=== PATIENT | female | born 1995 | race Caucasian/White ===

== ENCOUNTER 2020-05-26 21:31 | Emergency (ER) | payer SELFPAY ==
[~2020-05-26] VITALS: Ht 154.9 cm; Wt 62.8 kg
[2020-05-26 21:35] VITALS: BP 130/87
[2020-05-26] MEDS ORDERED: MORPHINE SULFATE 4 MG/ML, 1ML IVPush PRN (22:00)
[2020-05-26] MEDS ORDERED: SODIUM CHLORIDE 0.9% 1,000ML IVBOLUS ONE (22:00)
[2020-05-26] MEDS ORDERED: ONDANSETRON 2MG/ML, 2ML IVPush ONE (22:00)
[2020-05-26] MEDS ORDERED: ONDANSETRON 2MG/ML, 2ML ONE (22:05)
[2020-05-26] MEDS ORDERED: MORPHINE SULFATE 4 MG/ML, 1ML ONE (22:06)
[2020-05-26 22:10] LABS: BASOPHILS % (AUTO) 1 % (0-1); EOSINOPHILS % (AUTO) 1 % (1-7); LYMPHOCYTES % (AUTO) 15 % (22-44); MEAN CORPUSCULAR HEMOGLOBIN 29.2 pg (27.0-34.8); MEAN CORPUSCULAR HGB CONC 32.9 g/dL (32.4-35.8); MEAN PLATELET VOLUME 7.9 fL (7.4-10.4); MONOCYTES % (AUTO) 6 % (2-9); NEUTROPHILS % (AUTO) 77 % (42-75); PLATELET COUNT 243 x10^3/uL (130-400); RED BLOOD COUNT 4.83 x10^6/uL (3.82-5.3)
[2020-05-26 22:12] LABS: MD NO
[2020-05-26 22:21] LABS: ALANINE AMINOTRANSFERASE 18 U/L (12-78); ALBUMIN 4.3 g/dL (3.4-5.0); ANION GAP 6 mmol/L (5-15); CALCIUM 9.1 mg/dL (8.5-10.1); CHLORIDE 105 mmol/L (98-107)
[2020-05-26 22:26] LABS: ALKALINE PHOSPHATASE 70 U/L (45-117); BILIRUBIN,TOTAL 0.7 mg/dL (0.2-1.0); CREATININE 0.95 mg/dL (0.55-1.02); TOTAL PROTEIN 7.4 g/dL (6.4-8.2)
--- NOTE | 2020-05-26 22:28 | NUR ---
MEDICATED, IVF INFUSING, SIDE RAILS UP, CALL LIGHT IN REACH. PT REPORTS FEELING MUCH BETTER. URINE SENT. WILL CONTINUE TO MONITOR.
[2020-05-26 22:45] LABS: MICROSCOPIC AUTO
--- NOTE | 2020-05-26 23:24 | NUR ---
DC HOME WITH INSTRUCT, PT VERBALIZES UNDERSTANDING. VSS.
== END 2020-05-26 23:31 | disposition home or self-care (01) ==
LOC: ED 22:02
DX: M54.6 Pain in thoracic spine (principal); Z87.442 Personal history of urinary calculi
CPT/HCPCS: 36415; 74176; 80053; 81001; 83690; 84703; 85025; 87077; 87086; 96361; 96374; 96375; 99284; J2270; J2405; J7030; 87186